=== PATIENT | female | born 1950 | race Two or more races ===

== ENCOUNTER → 2021-08-29 08:00 | Outpatient (CLI) | payer OTHER ==
[~2021-08-29] VITALS: Ht 157.5 cm; Wt 75.3 kg
[~2021-08-29 08:00] MED LIST: AMLODIPINE-OLM1 EACH PO; CARVEDILOL6.25 M1 PO; LIPITOR20 MG PO
== END | disposition home or self-care (01) ==
LOC: LAB 08:00 → SURH 08-31 07:00 → EDSTATUS 08-31 11:45
PROVIDERS: ATTEND Surgery
DX: U07.1 COVID-19 (principal); D37.4 Neoplasm of uncertain behavior of colon; D12.2 Benign neoplasm of ascending colon; R19.5 Other fecal abnormalities

== ENCOUNTER 2021-09-26 10:20 | Outpatient (CLI) | payer OTHER | END 2021-09-26 10:26 | disposition home or self-care (01) | LOC: LAB 10:20 | PROVIDERS: ATTEND Surgery | DX: Z03.818 Encounter for observation for suspected exposure to other biological agents ruled out (principal) ==